=== PATIENT | male | born 1945 | race Caucasian/White ===

== ENCOUNTER → 2016-10-20 | Outpatient (CLI) | payer MEDICARE ==
--- NOTE | 2016-10-20 08:12 | US ---
EXAMINATION TYPE: US scrotum with doppler. Grayscale and color Doppler Duplex imaging performed of t milena scrotum. DATE OF EXAM: 10/20/2016 6:50 AM COMPARISON: NONE CLINICAL HISTORY: Scrotal Pain N50.8. EXAM MEASUREMENTS: TESTICLES: Right Testicle: 4.3 x 1.8 x 3.4 cm Left Testicle: 4.3 x 2.1 x 3.0 cm EPIDIDYMIS HEAD: Right Epididymis: 0.8 cm Left Epididymis: 0.8 cm TECHNOLOGIST IMPRESSION: Doppler performed to assess for testicular vascularity; good bilateral color flow and waveforms are s een. There is no evidence of testicular torsion. Presence of hydroceles: no Presence of varicoceles: no Left epididymal cysts are present. IMPRESSION: 1. Normal scrotal ultrasound.
== END | disposition home or self-care (01) ==
LOC: RADUSWWP 06:47
PROVIDERS: ATTEND Surgery
DX: N50.82 Scrotal pain (principal)
CPT/HCPCS: 76870; 93975